=== PATIENT | male | born 1970 | race Caucasian/White ===

== ENCOUNTER 2019-01-12 09:23 | Emergency (ER) | payer BC ==
--- NOTE | 2019-01-12 10:01 | EDM.PDOC ---
ED HPI GENERAL MEDICAL PROBLEM - General Chief Complaint: Skin Complaint Stated Complaint: LYMES Time Seen by Provider: 01/12/19 09:55 Source of Information: Reports: Patient History Limitations: Reports: No Limitations - History of Present Illness INITIAL COMMENTS - FREE TEXT/NARRATIVE: pt has been feeling tired with headaches and neck pain . He developed a target lesion on the left nipple area. He has been runnuing a low grade temp. He has a history of multple tick exposure. Onset: Other (target lesion started today. ) Duration: Hour(s): Location: Reports: Head, Neck, Chest, Generalized Associated Symptoms: Reports: No Other Symptoms - Related Data Allergies Allergy/AdvReac Type Severity Reaction Status Date / Time No Known Allergies Allergy Verified 01/12/19 09:43 Home Meds: Home Meds NK [No Known Home Meds] 01/12/19 [History] Social & Family History - Caffeine Use Caffeine Use: Reports: Coffee - Recreational Drug Use Recreational Drug Use: No ED ROS GENERAL - Review of Systems Review Of Systems: See Below Constitutional: Reports: Fever, Chills, Malaise, Other (headache. ) HEENT: Reports: No Symptoms Respiratory: Reports: No Symptoms Cardiovascular: Reports: No Symptoms Endocrine: Reports: No Symptoms GI/Abdominal: Reports: No Symptoms : Reports: No Symptoms Musculoskeletal: Reports: Neck Pain, Muscle Pain, Muscle Stiffness Skin: Reports: Other ( target type lesion by the left nipple. ) Neurological: Reports: No Symptoms ED EXAM, SKIN/RASH Exam: See Below Text/Narrative:: pt has a history of multipleepisodes of tick exposure. He has a target lesion on his left nipple today. Exam Limited By: No Limitations General Appearance: Alert, Mild Distress Ears: Normal TMs Nose: Normal Inspection Throat/Mouth: Normal Inspection Head: Atraumatic Neck: Normal Inspection Respiratory/Chest: No Respiratory Distress Cardiovascular: Regular Rate, Rhythm GI/Abdominal: Soft, Non-Tender Back Exam: Other (pt is having some neck tenderness) Extremities: Normal Inspection Location, Skin: Chest, Other (pt has a target lesionon his left nipple area. ) Associated features: Tenderness Course - Vital Signs Last Recorded V/S: Last Vital Signs Temp 37.2 C 01/12/19 09:45 Pulse 85 01/12/19 09:45 Resp 16 01/12/19 09:45 BP 139/88 01/12/19 09:45 Pulse Ox 99 01/12/19 09:45 - Orders/Labs/Meds Orders: Active Orders 24 hr Category Date Time Status BABESIA MICROTI ANTIBODY PANEL Stat Lab 01/12/19 10:04 Received HUMAN GRANULOCYTIC TETE-HGE Stat Lab 01/12/19 10:04 Received LYME, TOTAL AB TEST/REFLEX Stat Lab 01/12/19 10:04 Received Labs: Laboratory Tests 01/12/19 01/12/19 Range/Units 10:04 10:04 WBC 4.8 (4.5-11.0) K/uL RBC 4.37 (4.30-5.90) M/uL Hgb 13.4 (12.0-15.0) g/dL Hct 40.1 (40.0-54.0) % MCV 92 (80-98) fL MCH 31 (27-31) pg MCHC 33 (32-36) % Plt Count 209 (150-400) K/uL Neut % (Auto) 61 (36-66) % Lymph % (Auto) 19 L (24-44) % Scurry % (Auto) 16 H (2-6) % Eos % (Auto) 3 (2-4) % Baso % (Auto) 1 (0-1) % Sodium 140 (140-148) mmol/L Potassium 3.9 (3.6-5.2) mmol/L Chloride 103 (100-108) mmol/L Carbon Dioxide 27 (21-32) mmol/L Anion Gap 10.1 (5.0-14.0) mmol/L BUN 9 (7-18) mg/dL Creatinine 0.9 (0.8-1.3) mg/dL Est Cr Clr Drug Dosing 112.21 mL/min Estimated GFR (MDRD) > 60 (>60) Glucose 120 H (74-106) mg/dL Calcium 8.6 (8.5-10.1) mg/dL Total Bilirubin 0.5 (0.2-1.0) mg/dL AST 25 (15-37) U/L ALT 37 (12-78) U/L Alkaline Phosphatase 103 (46-116) U/L Total Protein 7.3 (6.4-8.2) g/dL Albumin 3.5 (3.4-5.0) g/dL Globulin 3.8 H (2.3-3.5) g/dL Albumin/Globulin Ratio 0.9 L (1.2-2.2) Meds: Medications Discontinued Medications Generic Name Dose Route Start Last Admin Trade Name Joselito PRN Reason Stop Dose Admin Doxycycline Hyclate 200 mg 01/12/19 10:02 01/12/19 10:13 Vibramycin PO 01/12/19 10:03 200 mg ONETIME ONE Administration - Re-Assessments/Exams Free Text/Narrative Re-Assessment/Exam: 01/12/19 10:36 wbc is low, chems are normal. Tick born studies are pending. Departure - Departure Time of Disposition: 10:37 Disposition: Home, Self-Care 01 Condition: Fair Clinical Impression: Acute Lyme disease - Discharge Information Referrals: PCP,None [Primary Care Provider] - Forms: ED Department Discharge Care Plan Goals: will notify of the results of the tick studies, doxycyline 100mg bid for 3 weeks. rtc if problems. - My Orders Last 24 Hours: My Active Orders 01/12/19 10:04 BABESIA MICROTI ANTIBODY PANEL Stat HUMAN GRANULOCYTIC TETE-HGE Stat LYME, TOTAL AB TEST/REFLEX Stat - Assessment/Plan Last 24 Hours: My Active Orders 01/12/19 10:04 BABESIA MICROTI ANTIBODY PANEL Stat HUMAN GRANULOCYTIC TETE-HGE Stat LYME, TOTAL AB TEST/REFLEX Stat
[2019-01-12] MEDS ORDERED: Doxycycline 100 MG Cap PO ONE (10:02)
[2019-01-16 14:08] LABS: HGE IGG TITER Negative (Neg:<1:64); HGE IGM TITER Negative (Neg:<1:20); LYME IGG/IGM AB <0.91 ISR (0.00-0.90)
[2019-01-16 17:08] LABS: BABESIA MICROTI IGG <1:10 (Neg:<1:10); BABESIA MICROTI IGM <1:10 (Neg:<1:10)
== END 2019-01-12 10:47 | disposition home or self-care (01) ==
LOC: JP.ED 09:23
DX: A69.20 Lyme disease, unspecified (principal)
CPT/HCPCS: 36415; 80053; 85025; 86666; 86753; 99283; A9270; 86618